=== PATIENT | male | born 1970 | race Caucasian/White ===

== ENCOUNTER 2018-08-25 01:51 | Emergency (ER) | payer SELFPAY ==
[~2018-08-25] VITALS: Ht 188 cm; Wt 73.9 kg
[2018-08-25 03:45] VITALS: BP 133/85
== END 2018-08-25 03:45 | disposition home or self-care (01) ==
LOC: ED 01:51
DX: J44.1 Chronic obstructive pulmonary disease with (acute) exacerbation (principal); J40 Bronchitis, not specified as acute or chronic
CPT/HCPCS: J7512; J7613; J7644

== ENCOUNTER 2018-10-05 22:56 | Emergency (ER) | payer SELFPAY ==
[~2018-10-05] VITALS: Ht 188 cm; Wt 73.9 kg
[2018-10-05 23:14] VITALS: Ht 188 cm; Wt 73.9 kg
[2018-10-06 00:34] VITALS: BP 106/79
== END 2018-10-06 00:34 | disposition home or self-care (01) ==
LOC: ED 22:56
DX: J45.909 Unspecified asthma, uncomplicated (principal)
CPT/HCPCS: J2930; J7620